=== PATIENT | male | born 1940 | race Caucasian/White ===

== ENCOUNTER 2017-11-26 16:37 | Inpatient (IN) | payer MEDICARE ==
[~2017-11-26] VITALS: Ht 165.1 cm; Wt 54.4 kg
[2017-11-26] MEDS ORDERED: 0.9% SODIUM CHLORIDE 10 ML SYRINGE IVP PRN ×2 (16:45→18:00)
[2017-11-26] MEDS ORDERED: CefTRIAXone 1 GM/DEXTROSE 50 ML IV ONE (16:45)
[2017-11-26] MEDS ORDERED: SODIUM CHLORIDE 0.9% 1,000 ML IV ONE ×2 (16:45→17:30)
[2017-11-26 17:03] LABS: GLUCOSE,POINT OF CARE 81 MG/DL (70-110)
[2017-11-26 17:16] LABS: APPEARANCE,URINE TURBID (CLEAR); GLUCOSE, URINE (UA) NEGATIVE (NEGATIVE); KETONES,URINE NEGATIVE (NEGATIVE); LEUKOCYTE ESTERASE ,URINE LARGE (NEGATIVE); NITRATE,URINE NEGATIVE (NEGATIVE); OCCULT BLOOD,URINE LARGE (NEGATIVE); PH,URINE 8.5 (5.0-8.0); PROTEIN,URINE SEE CONFIRM (NEGATIVE); UROBILINOGEN,URINE 0.2 mg/dL (<=1.0)
[2017-11-26 17:17] LABS: HEMATOCRIT 32.9 % (41-53); HEMOGLOBIN 10.5 g/dL (13.5-17.5); MEAN CORPUSCULAR HEMOGLOBIN 29.8 pg (26.0-34.0); MEAN CORPUSCULAR VOLUME 93 fL (80-100); PLATELET COUNT (AUTO) 140 K/uL (150-450); RED BLOOD CELL COUNT(AUTO) 3.54 MIL/uL (4.50-5.90); RED CELL DISTRIBUTION WIDTH 17.6 % (11.5-14.5)
[2017-11-26 17:23] LABS: BILIRUBIN,URINE PRELIM. POSITIVE (NEGATIVE)
[2017-11-26 17:30] LABS: INR 0.9 (0.9-1.1); PROTHROMBIN TIME 9.9 SEC (9.4-11.6)
[2017-11-26 17:35] LABS: BAND NEUTROPHILS % (MANUAL) 21 % (1-5); LYMPHOCYTES % (MANUAL) 6 % (22-44); MONOCYTES % (MANUAL) 2 % (2-9); SEGMENTED NEUTROPHILS % 71 % (40-70)
[2017-11-26 17:36] LABS: BACTERIA,URINE Few /HPF (None Seen); SULFOSALICYLIC ACID,URINE 3+ (Negative)
[2017-11-26 17:38] LABS: LACTIC ACID 2.8 mmol/L (0.4-2.0)
[2017-11-26 17:39] LABS: TRIPLE PHOSPHATE CRYSTAL,UR Moderate /LPF (None Seen)
[2017-11-26 17:39] LABS: B-TYPE NATRIURETIC PEPTIDE 114 pg/mL (0-100)
[2017-11-26] MEDS ORDERED: MethylPREDNISolone SOD SUCC 125 MG/2 ML VIAL IVP ONE (17:45)
[2017-11-26] MEDS ORDERED: ASPIRIN 325 MG TABLET PO ONE (17:45)
[2017-11-26 17:56] LABS: ALANINE AMINOTRANSFERASE 92 U/L (12-78); ALBUMIN 2.9 g/dL (3.4-5.0); ALKALINE PHOSPHATASE 109 U/L (46-116); ANION GAP 18 mmol/L (8-16); ASPARTATE AMINOTRANSFERASE 186 U/L (15-37); BILIRUBIN,TOTAL 0.4 mg/dL (0.1-1.0); CALCIUM, TOTAL 8.5 mg/dL (8.8-10.5); CARBON DIOXIDE 12 mmol/L (22-29); CHLORIDE 113 mmol/L (98-107); CKMB RELATIVE INDEX 2.5 % (0.0-4.0); CREATINE KINASE MB 45.6 ng/mL (0-5); CREATINE KINASE, TOTAL 1811 U/L (39-308); CREATININE 5.16 mg/dL (0.60-1.30); GLOMERULAR FILTR. RATE CALC 11 mL/min (>60); GLUCOSE,RANDOM 112 mg/dL (70-110); POTASSIUM 5.2 mmol/L (3.5-5.1); SODIUM SERUM 143 mmol/L (136-145); TOTAL PROTEIN, SERUM 7.1 g/dL (6.4-8.2)
[2017-11-26 17:57] LABS: UREA NITROGEN, BLOOD 148 mg/dL (7-18)
[2017-11-26] MEDS ORDERED: PIPERACILLIN/TAZO 3.375 GM/D5W 50 ML IV ONE (18:00)
[2017-11-26] MEDS ORDERED: ACETAMINOPHEN 325 MG TABLET PO PRN (18:00)
[2017-11-26] MEDS ORDERED: ONDANSETRON HCL 4 MG/2 ML VIAL IVP PRN (18:00)
[2017-11-26] MEDS ORDERED: DEXTROSE 5%-0.9% SODIUM CHL 1,000 ML IV ONE (21:00)
[2017-11-27 06:07] LABS: HEMATOCRIT 25.5 % (41-53); HEMOGLOBIN 8.4 g/dL (13.5-17.5); MEAN CORPUSCULAR HEMOGLOBIN 29.9 pg (26.0-34.0); MEAN CORPUSCULAR HGB CONC 32.9 G/dL (31.0-37.0); MEAN CORPUSCULAR VOLUME 91 fL (80-100); RED BLOOD CELL COUNT(AUTO) 2.81 MIL/uL (4.50-5.90); RED CELL DISTRIBUTION WIDTH 17.3 % (11.5-14.5)
[2017-11-27 06:22] LABS: ALBUMIN 2.2 g/dL (3.4-5.0); BILIRUBIN,TOTAL 0.2 mg/dL (0.1-1.0); CALCIUM, TOTAL 7.8 mg/dL (8.8-10.5); CREATININE 5.13 mg/dL (0.60-1.30); MAGNESIUM 2.7 mg/dL (1.80-2.40); POTASSIUM 5.2 mmol/L (3.5-5.1); TOTAL PROTEIN, SERUM 5.6 g/dL (6.4-8.2)
[2017-11-27 06:49] LABS: PLATELET COUNT (AUTO) 102 K/uL (150-450)
[2017-11-27 06:51] LABS: BAND NEUTROPHILS % (MANUAL) 59 % (1-5); LYMPHOCYTES % (MANUAL) 1 % (22-44); SEGMENTED NEUTROPHILS % 40 % (40-70)
[2017-11-27 09:48] VITALS: BP 136/65
[2017-11-27 12:36] VITALS: BP 132/55
[2017-11-27 15:40] VITALS: BP 140/59
[2017-11-27 16:28] VITALS: BP 112/85
[2017-11-27] MEDS: DEXTROSE 5%-0.9% SODIUM CHL 1,000 ML IV SCH (18:54)
[2017-11-27 19:52] LABS: ABG A-A DIFF O2 76.9 mmHg (10-20.0); ABG BASE EXCESS -22.5 mmol/L (-2.0-3.0); ABG CARBOXYHEMOGLOBIN 1.6 % (0.0-1.5); ABG METHEMOGLOBIN 0.5 % (0.0-1.5); ABG OXYGEN CONTENT 11.9 mL/dL (15.0-23.0); ABG OXYGEN SATURATION 99.7 % (95.0-98.0); ABG OXYHEMOGLOBIN 97.6 % (94.0-100.0); ABG TOTAL HEMOGLOBIN 8.2 G/dL (12.0-18.0); PO2, ARTERIAL BG 258.1 mmHg (75.0-83.0); SOURCE, BLOOD GAS ARTERIAL; TEMPERATURE, FAHRENHEIT, BG 98.6 FAHREN (96.0-98.6)
[2017-11-27 19:53] LABS: ABG HCO3 8.8 mmol/L (22.0-26.0); ABG PCO2 19 mmHg (35-45); ABG PH 7.145 (7.35-7.450); SITE, BLOOD GAS RT RADIAL
[2017-11-27 19:54] LABS: O2 DEVICE,BLOOD GAS BIPAP (ROOM AIR)
[2017-11-27 19:59] VITALS: BP 139/82
[2017-11-27] MEDS: CefTRIAXone 1 GM/DEXTROSE 50 ML IV SCH (20:01)
[2017-11-27] MEDS ORDERED: SODIUM BICARBONATE [ADULT] 8.4% 50 MEQ/50 ML SYRINGE IVP ONE (20:15)
[2017-11-27] MEDS ORDERED: SODIUM BICARBONATE 100 MEQ in DEXTROSE 5%-WATER 1,000 ML IV SCH ×2 (20:15→23:45)
[2017-11-28 00:23] VITALS: BP 128/59
[2017-11-28] MEDS: DEXTROSE 5%-0.9% SODIUM CHL 1,000 ML IV SCH ×3 (03:45→22:46)
[2017-11-28 06:32] VITALS: BP 141/102
[2017-11-28 07:52] VITALS: BP 133/68
[2017-11-28] MEDS: MethylPREDNISolone SOD SUCC 125 MG/2 ML VIAL IVP SCH ×3 (09:07→18:00)
[2017-11-28 09:21] LABS: CALCIUM, TOTAL 7.8 mg/dL (8.8-10.5); CREATININE 5.57 mg/dL (0.60-1.30); MAGNESIUM 2.6 mg/dL (1.80-2.40); POTASSIUM 4.3 mmol/L (3.5-5.1)
[2017-11-28 09:57] LABS: HEMATOCRIT 22.5 % (41-53); HEMOGLOBIN 7.4 g/dL (13.5-17.5); MEAN CORPUSCULAR HEMOGLOBIN 29.6 pg (26.0-34.0); MEAN CORPUSCULAR HGB CONC 32.9 G/dL (31.0-37.0); MEAN CORPUSCULAR VOLUME 90 fL (80-100); PLATELET COUNT (AUTO) 90 K/uL (150-450); RED BLOOD CELL COUNT(AUTO) 2.49 MIL/uL (4.50-5.90); RED CELL DISTRIBUTION WIDTH 17.1 % (11.5-14.5)
[2017-11-28 10:26] LABS: BAND NEUTROPHILS % (MANUAL) 35 % (1-5); LYMPHOCYTES % (MANUAL) 3 % (22-44); MONOCYTES % (MANUAL) 6 % (2-9); SEGMENTED NEUTROPHILS % 56 % (40-70)
[2017-11-28 11:12] VITALS: BP 145/61
[2017-11-28 15:10] VITALS: BP 147/88
[2017-11-28] MEDS: PIPERACILLIN/TAZO 3.375 GM/D5W 50 ML IV SCH (17:45)
[2017-11-28 19:45] VITALS: BP 137/84
[2017-11-28 20:25] LABS: ABG PCO2 29 mmHg (35-45); SITE, BLOOD GAS LFT RADIAL; SOURCE, BLOOD GAS ARTERIAL; TEMPERATURE, FAHRENHEIT, BG 98.6 FAHREN (96.0-98.6)
[2017-11-28 20:26] LABS: ABG BASE EXCESS -13.3 mmol/L (-2.0-3.0); ABG HCO3 14.6 mmol/L (22.0-26.0); ABG TOTAL HEMOGLOBIN 6.7 G/dL (12.0-18.0); PO2, ARTERIAL BG 169.7 mmHg (75.0-83.0)
[2017-11-28 20:27] LABS: ABG CARBOXYHEMOGLOBIN 1.3 % (0.0-1.5); ABG METHEMOGLOBIN 0.6 % (0.0-1.5); ABG OXYGEN CONTENT 9.6 mL/dL (15.0-23.0); ABG OXYGEN SATURATION 98.9 % (95.0-98.0)
[2017-11-28 20:28] LABS: O2 DEVICE,BLOOD GAS CANNULA (ROOM AIR)
[2017-11-28 21:55] LABS: EOSINOPHILS % (AUTO) 0 % (1.0-6.0); HEMATOCRIT 21.2 % (41-53); LYMPHOCYTES # (AUTO) 0.2 K/uL (1.0-4.8); LYMPHOCYTES % (AUTO) 1.9 % (22.0-44.0); MEAN CORPUSCULAR HEMOGLOBIN 28.9 pg (26.0-34.0); MEAN CORPUSCULAR HGB CONC 31.5 G/dL (31.0-37.0); MEAN CORPUSCULAR VOLUME 92 fL (80-100); MONOCYTES # (AUTO) 0.2 K/uL (0.1-1.0); MONOCYTES % (AUTO) 1.4 % (2.0-9.0); PLATELET COUNT (AUTO) 78 K/uL (150-450); RED BLOOD CELL COUNT(AUTO) 2.31 MIL/uL (4.50-5.90); RED CELL DISTRIBUTION WIDTH 18.1 % (11.5-14.5)
[2017-11-28 21:58] LABS: CALCIUM, TOTAL 7.5 mg/dL (8.8-10.5); CREATININE 5.57 mg/dL (0.60-1.30); MAGNESIUM 2.5 mg/dL (1.80-2.40); PHOSPHORUS 5.6 mg/dL (2.5-4.9); POTASSIUM 4.2 mmol/L (3.5-5.1)
[2017-11-28 22:04] LABS: HEMOGLOBIN 6.7 g/dL (13.5-17.5); NEUTROPHILS % (AUTO) 96.7 % (40.0-70.0)
[2017-11-28] MEDS ORDERED: FUROSEMIDE 20 MG/2 ML VIAL IVP ONE ×2 (22:30→22:45)
[2017-11-29] VITALS (14 sets, daily range): BP systolic 136–156; BP diastolic 51–96
[2017-11-29] MEDS ORDERED: SODIUM CHLORIDE 0.9% 500 ML IV ONE (00:42)
[2017-11-29 04:14] LABS: CREATININE,URINE RANDOM 60.1 mg/dL (30.0-125.0)
[2017-11-29 04:17] LABS: MAGNESIUM,URINE RANDOM 0.3 mg/dL (1.0-13.0)
[2017-11-29 05:26] LABS: ABG A-A DIFF O2 24.2 mmHg (10-20.0)
[2017-11-29] MEDS: PIPERACILLIN/TAZO 3.375 GM/D5W 50 ML IV SCH (08:28)
[2017-11-29] MEDS: PANTOPRAZOLE SODIUM 40 MG/VIAL IVP SCH (08:28)
[2017-11-29] MEDS: MethylPREDNISolone SOD SUCC 125 MG/2 ML VIAL IVP SCH ×3 (08:29→18:49)
[2017-11-29 08:47] LABS: CALCIUM, TOTAL 7.5 mg/dL (8.8-10.5); CREATININE 5.42 mg/dL (0.60-1.30); POTASSIUM 3.7 mmol/L (3.5-5.1)
[2017-11-29] MEDS: CefTRIAXone 1 GM/DEXTROSE 50 ML IV SCH (09:37)
[2017-11-29 10:12] LABS: EOSINOPHILS % (AUTO) 0 % (1.0-6.0); HEMATOCRIT 24.9 % (41-53); HEMOGLOBIN 8.1 g/dL (13.5-17.5); LYMPHOCYTES # (AUTO) 0.2 K/uL (1.0-4.8); LYMPHOCYTES % (AUTO) 1.4 % (22.0-44.0); MEAN CORPUSCULAR HEMOGLOBIN 28.3 pg (26.0-34.0); MEAN CORPUSCULAR HGB CONC 32.6 G/dL (31.0-37.0); MEAN CORPUSCULAR VOLUME 87 fL (80-100); MONOCYTES # (AUTO) 0.3 K/uL (0.1-1.0); MONOCYTES % (AUTO) 2.3 % (2.0-9.0); NEUTROPHILS # (AUTO) 13.1 K/uL (1.8-7.7); PLATELET COUNT (AUTO) 71 K/uL (150-450); RED BLOOD CELL COUNT(AUTO) 2.86 MIL/uL (4.50-5.90); RED CELL DISTRIBUTION WIDTH 19.5 % (11.5-14.5)
[2017-11-29 10:16] LABS: NEUTROPHILS % (AUTO) 96.3 % (40.0-70.0)
[2017-11-29] MEDS: DEXTROSE 5%-0.9% SODIUM CHL 1,000 ML IV SCH (12:02)
[2017-11-29 15:45] LABS: CALCIUM, TOTAL 7.5 mg/dL (8.8-10.5); CREATININE 5.51 mg/dL (0.60-1.30); MAGNESIUM 2.3 mg/dL (1.80-2.40); PHOSPHORUS 5.1 mg/dL (2.5-4.9); POTASSIUM 3.9 mmol/L (3.5-5.1)
[2017-11-29] MEDS ORDERED: PIPERACILLIN SODIUM/TAZOBACTAM 2.25 GM in DEXTROSE 5%-WATER 50 ML IV SCH (16:00)
[2017-11-29 20:53] LABS: CALCIUM, TOTAL 7.6 mg/dL (8.8-10.5); CREATININE 4.69 mg/dL (0.60-1.30); POTASSIUM 3.5 mmol/L (3.5-5.1)
[2017-11-29] MEDS: SODIUM CHLORIDE 0.45% 1,000 ML IV SCH (22:09)
[2017-11-30] MEDS: MethylPREDNISolone SOD SUCC 125 MG/2 ML VIAL IVP SCH ×4 (00:36→19:49)
[2017-11-30 05:04] VITALS: BP 148/70
[2017-11-30 07:27] LABS: EOSINOPHILS % (AUTO) 0.1 % (1.0-6.0); HEMATOCRIT 22.7 % (41-53); HEMOGLOBIN 7.6 g/dL (13.5-17.5); LYMPHOCYTES # (AUTO) 0.2 K/uL (1.0-4.8); LYMPHOCYTES % (AUTO) 1.1 % (22.0-44.0); MEAN CORPUSCULAR HEMOGLOBIN 28.9 pg (26.0-34.0); MEAN CORPUSCULAR HGB CONC 33.5 G/dL (31.0-37.0); MEAN CORPUSCULAR VOLUME 86 fL (80-100); MONOCYTES # (AUTO) 0.4 K/uL (0.1-1.0); MONOCYTES % (AUTO) 2.7 % (2.0-9.0); PLATELET COUNT (AUTO) 52 K/uL (150-450); RED BLOOD CELL COUNT(AUTO) 2.63 MIL/uL (4.50-5.90); RED CELL DISTRIBUTION WIDTH 20.4 % (11.5-14.5)
[2017-11-30 07:28] LABS: CALCIUM, TOTAL 7.7 mg/dL (8.8-10.5); CREATININE 4.89 mg/dL (0.60-1.30); PHOSPHORUS 5.2 mg/dL (2.5-4.9); POTASSIUM 3.6 mmol/L (3.5-5.1)
[2017-11-30 07:30] LABS: NEUTROPHILS % (AUTO) 96.1 % (40.0-70.0)
[2017-11-30 08:08] VITALS: BP 156/70
[2017-11-30] MEDS: PANTOPRAZOLE SODIUM 40 MG/VIAL IVP SCH (08:26)
[2017-11-30] MEDS: SODIUM CHLORIDE 0.45% 1,000 ML IV SCH ×2 (09:08→16:40)
[2017-11-30] MEDS ORDERED: SODIUM CHLORIDE 0.9% 1,000 ML IV ONE (09:59)
[2017-11-30 11:17] VITALS: BP 128/64
[2017-11-30] MEDS: CefTRIAXone 1 GM/DEXTROSE 50 ML IV SCH (14:30)
[2017-11-30 16:05] VITALS: BP 146/57
[2017-11-30] MEDS ORDERED: DEXTROSE 50%-WATER 25 GM/50 ML SYRINGE IVP PRN (16:30)
[2017-11-30] MEDS ORDERED: INSULIN ASPART 100 UNITS/ML SQ PRN (16:30)
[2017-11-30 19:57] VITALS: BP 150/77
[2017-12-01] MEDS: MethylPREDNISolone SOD SUCC 125 MG/2 ML VIAL IVP SCH ×5 (00:23→23:10)
[2017-12-01] MEDS: SODIUM CHLORIDE 0.45% 1,000 ML IV SCH ×3 (03:51→20:51)
[2017-12-01 04:42] VITALS: BP 120/79
[2017-12-01 07:38] VITALS: BP 146/74
[2017-12-01] MEDS: PANTOPRAZOLE SODIUM 40 MG/VIAL IVP SCH (07:55)
[2017-12-01] MEDS: CefTRIAXone 1 GM/DEXTROSE 50 ML IV SCH (10:45)
[2017-12-01 11:43] VITALS: BP 149/74
[2017-12-01 12:48] LABS: CALCIUM, TOTAL 7.6 mg/dL (8.8-10.5); CREATININE 3.37 mg/dL (0.60-1.30); POTASSIUM 3.7 mmol/L (3.5-5.1)
[2017-12-01 12:52] LABS: MAGNESIUM 1.7 mg/dL (1.80-2.40); PHOSPHORUS 5.4 mg/dL (2.5-4.9)
[2017-12-01 13:00] LABS: EOSINOPHILS % (AUTO) 0 % (1.0-6.0); HEMATOCRIT 22.9 % (41-53); HEMOGLOBIN 7.7 g/dL (13.5-17.5); LYMPHOCYTES # (AUTO) 0.2 K/uL (1.0-4.8); LYMPHOCYTES % (AUTO) 1.5 % (22.0-44.0); MEAN CORPUSCULAR HGB CONC 33.8 G/dL (31.0-37.0); MEAN CORPUSCULAR VOLUME 86 fL (80-100); MONOCYTES # (AUTO) 0.4 K/uL (0.1-1.0); MONOCYTES % (AUTO) 2.5 % (2.0-9.0); NEUTROPHILS # (AUTO) 15.2 K/uL (1.8-7.7); PLATELET COUNT (AUTO) 44 K/uL (150-450); RED BLOOD CELL COUNT(AUTO) 2.66 MIL/uL (4.50-5.90); RED CELL DISTRIBUTION WIDTH 19.5 % (11.5-14.5)
[2017-12-01 15:36] VITALS: BP 149/81
[2017-12-01 16:42] LABS: PLATELET MORPHOLOGY COMMENT DECREASED
[2017-12-01 19:48] VITALS: BP 155/56
[2017-12-02] VITALS (7 sets, daily range): BP systolic 105–162; BP diastolic 50–100
[2017-12-02] MEDS: SODIUM CHLORIDE 0.45% 1,000 ML IV SCH ×2 (05:39→12:20)
[2017-12-02] MEDS: MethylPREDNISolone SOD SUCC 125 MG/2 ML VIAL IVP SCH ×4 (06:46→23:59)
[2017-12-02] MEDS: PANTOPRAZOLE SODIUM 40 MG/VIAL IVP SCH (09:27)
[2017-12-02] MEDS: CefTRIAXone 1 GM/DEXTROSE 50 ML IV SCH (09:27)
[2017-12-02 10:23] LABS: EOSINOPHILS % (AUTO) 0 % (1.0-6.0); LYMPHOCYTES # (AUTO) 0.2 K/uL (1.0-4.8); LYMPHOCYTES % (AUTO) 1.2 % (22.0-44.0); MEAN CORPUSCULAR HEMOGLOBIN 28.7 pg (26.0-34.0); MEAN CORPUSCULAR VOLUME 87 fL (80-100); MONOCYTES # (AUTO) 0.3 K/uL (0.1-1.0); MONOCYTES % (AUTO) 1.7 % (2.0-9.0); NEUTROPHILS # (AUTO) 18.2 K/uL (1.8-7.7); PLATELET COUNT (AUTO) 50 K/uL (150-450); RED BLOOD CELL COUNT(AUTO) 2.33 MIL/uL (4.50-5.90); RED CELL DISTRIBUTION WIDTH 18.9 % (11.5-14.5)
[2017-12-02 10:24] LABS: CREATININE 3.21 mg/dL (0.60-1.30); MAGNESIUM 1.4 mg/dL (1.80-2.40); PHOSPHORUS 5.5 mg/dL (2.5-4.9); POTASSIUM 3.3 mmol/L (3.5-5.1)
[2017-12-02 10:27] LABS: HEMATOCRIT 20.3 % (41-53); HEMOGLOBIN 6.7 g/dL (13.5-17.5); NEUTROPHILS % (AUTO) 97.1 % (40.0-70.0)
[2017-12-02] MEDS ORDERED: SODIUM CHLORIDE 0.9% 1,000 ML IV ONE ×2 (11:03→12:35)
[2017-12-02] MEDS: POTASSIUM CHL 10 MEQ/WATER 50 ML IV SCH ×2 (14:26→15:41)
[2017-12-02] MEDS ORDERED: HEPARIN SODIUM,PORCINE 1,000 UNITS/ML VIAL IVP ONE (15:37)
[2017-12-02] MEDS ORDERED: HEPARIN SODIUM,PORCINE 5,000 UNITS/ML VIAL SQ ONE (15:37)
[2017-12-02] MEDS ORDERED: POTASSIUM CHL 10 MEQ/WATER 50 ML IV SCH (16:15)
[2017-12-02] MEDS ORDERED: MAGNESIUM SULFATE 1 GM in DEXTROSE 5%-WATER 50 ML IV ONE (18:15)
[2017-12-03] VITALS (13 sets, daily range): BP systolic 136–169; BP diastolic 63–108
[2017-12-03] MEDS ORDERED: SODIUM CHLORIDE 0.9% 250 ML IV ONE ×2 (00:08→00:43)
[2017-12-03] MEDS: MethylPREDNISolone SOD SUCC 125 MG/2 ML VIAL IVP SCH ×4 (05:15→23:58)
[2017-12-03] MEDS: SODIUM CHLORIDE 0.45% 1,000 ML IV SCH ×3 (05:15→23:59)
[2017-12-03] MEDS: PANTOPRAZOLE SODIUM 40 MG/VIAL IVP SCH (09:00)
[2017-12-03] MEDS: CefTRIAXone 1 GM/DEXTROSE 50 ML IV SCH (10:00)
[2017-12-03 10:03] LABS: CALCIUM, TOTAL 7.2 mg/dL (8.8-10.5); CREATININE 3.02 mg/dL (0.60-1.30); PHOSPHORUS 5.8 mg/dL (2.5-4.9)
[2017-12-03] MEDS ORDERED: SODIUM CHLORIDE 0.9% 1,000 ML IV ONE (11:57)
[2017-12-03] MEDS: FLUCONAZOLE 100 MG TABLET PO SCH (12:30)
[2017-12-03 12:48] LABS: MAGNESIUM 1.8 mg/dL (1.80-2.40)
[2017-12-03] MEDS ORDERED: BENZOCAINE 20% 50 MCG/SPRAY 57 GM ONE (13:06)
[2017-12-03] MEDS ORDERED: MIDAZOLAM HCL 2 MG/2 ML VIAL ONE (13:34)
[2017-12-03] MEDS ORDERED: FentaNYL CITRATE-PF 100 MCG/2 ML VIAL ONE (13:34)
[2017-12-03] MEDS ORDERED: HEPARIN SODIUM,PORCINE 1,000 UNITS/ML 10 ML VIAL ONE (13:35)
[2017-12-03] MEDS ORDERED: HEPARIN SODIUM 1000 UNITS/NS 500 ML ONE (13:35)
[2017-12-03] MEDS ORDERED: LIDOCAINE HCL/PF 1% 30 ML VIAL ONE (13:35)
[2017-12-03] MEDS ORDERED: MIDAZOLAM HCL 2 MG/2 ML VIAL IVP ONE (14:19)
[2017-12-03] MEDS ORDERED: FentaNYL CITRATE-PF 100 MCG/2 ML VIAL IVP ONE (14:19)
[2017-12-03 19:14] LABS: BASOPHILS # (AUTO) 0.02 K/uL (0.00-0.20); BASOPHILS % (AUTO) 0.1 % (0.0-2.0); EOSINOPHILS % (AUTO) 0.01 % (1.0-6.0); HEMATOCRIT 25.6 % (41-53); HEMOGLOBIN 8.6 g/dL (13.5-17.5); LYMPHOCYTES # (AUTO) 0.3 K/uL (1.0-4.8); LYMPHOCYTES % (AUTO) 1.3 % (22.0-44.0); MEAN CORPUSCULAR HEMOGLOBIN 28.7 pg (26.0-34.0); MEAN CORPUSCULAR HGB CONC 33.7 G/dL (31.0-37.0); MEAN CORPUSCULAR VOLUME 85 fL (80-100); MONOCYTES # (AUTO) 0.7 K/uL (0.1-1.0); MONOCYTES % (AUTO) 3.6 % (2.0-9.0); NEUTROPHILS # (AUTO) 18.3 K/uL (1.8-7.7); PLATELET COUNT (AUTO) 47 K/uL (150-450); RED BLOOD CELL COUNT(AUTO) 3.01 MIL/uL (4.50-5.90); RED CELL DISTRIBUTION WIDTH 17.2 % (11.5-14.5)
[2017-12-04 03:15] VITALS: BP 127/55
[2017-12-04] MEDS: MethylPREDNISolone SOD SUCC 125 MG/2 ML VIAL IVP SCH ×2 (05:21→12:27)
[2017-12-04 07:49] VITALS: BP 191/77
[2017-12-04 08:03] VITALS: BP 148/87
[2017-12-04 09:44] LABS: EOSINOPHILS % (AUTO) 0.02 % (1.0-6.0); HEMOGLOBIN 8.2 g/dL (13.5-17.5); LYMPHOCYTES % (AUTO) 0.1 % (22.0-44.0); MEAN CORPUSCULAR HEMOGLOBIN 28.7 pg (26.0-34.0); MEAN CORPUSCULAR HGB CONC 32.9 G/dL (31.0-37.0); MEAN CORPUSCULAR VOLUME 87 fL (80-100); MONOCYTES # (AUTO) 0.3 K/uL (0.1-1.0); MONOCYTES % (AUTO) 1.9 % (2.0-9.0); PLATELET COUNT (AUTO) 41 K/uL (150-450); RED BLOOD CELL COUNT(AUTO) 2.87 MIL/uL (4.50-5.90); RED CELL DISTRIBUTION WIDTH 17.1 % (11.5-14.5)
[2017-12-04] MEDS: FLUCONAZOLE 100 MG TABLET PO SCH (09:47)
[2017-12-04] MEDS: PANTOPRAZOLE SODIUM 40 MG/VIAL IVP SCH (09:47)
[2017-12-04 09:58] LABS: CALCIUM, TOTAL 6.8 mg/dL (8.8-10.5); CREATININE 1.95 mg/dL (0.60-1.30); POTASSIUM 3.5 mmol/L (3.5-5.1)
[2017-12-04] MEDS: CefTRIAXone 1 GM/DEXTROSE 50 ML IV SCH (11:10)
[2017-12-04 12:12] VITALS: BP 162/88
[2017-12-04] MEDS ORDERED: CALCIUM GLUCONATE 100 MG/ML 10 ML IVP ONE (12:45)
[2017-12-04] MEDS: SODIUM CHLORIDE 0.45% 1,000 ML IV SCH (16:56)
[2017-12-04 19:20] VITALS: BP 137/81
[2017-12-04 23:09] VITALS: BP 160/97
[2017-12-05 04:20] VITALS: BP 152/89
[2017-12-05] MEDS: SODIUM CHLORIDE 0.45% 1,000 ML IV SCH ×2 (06:47→20:02)
[2017-12-05 07:08] LABS: EOSINOPHILS % (AUTO) 0.02 % (1.0-6.0); HEMATOCRIT 22.6 % (41-53); HEMOGLOBIN 7.4 g/dL (13.5-17.5); LYMPHOCYTES # (AUTO) 0.1 K/uL (1.0-4.8); LYMPHOCYTES % (AUTO) 0.3 % (22.0-44.0); MEAN CORPUSCULAR HEMOGLOBIN 28.9 pg (26.0-34.0); MEAN CORPUSCULAR HGB CONC 32.9 G/dL (31.0-37.0); MEAN CORPUSCULAR VOLUME 88 fL (80-100); MONOCYTES # (AUTO) 0.3 K/uL (0.1-1.0); MONOCYTES % (AUTO) 1.5 % (2.0-9.0); NEUTROPHILS # (AUTO) 17.9 K/uL (1.8-7.7); PLATELET COUNT (AUTO) 71 K/uL (150-450); RED BLOOD CELL COUNT(AUTO) 2.58 MIL/uL (4.50-5.90); RED CELL DISTRIBUTION WIDTH 17.4 % (11.5-14.5)
[2017-12-05 07:31] LABS: CALCIUM, TOTAL 6.6 mg/dL (8.8-10.5); CREATININE 2.39 mg/dL (0.60-1.30); NEUTROPHILS % (AUTO) 98.2 % (40.0-70.0); PHOSPHORUS 3.8 mg/dL (2.5-4.9)
[2017-12-05 07:45] VITALS: BP 145/70
[2017-12-05] MEDS: MethylPREDNISolone SOD SUCC 40 MG/ML VIAL IVP SCH (08:50)
[2017-12-05] MEDS: FLUCONAZOLE 100 MG TABLET PO SCH (08:50)
[2017-12-05] MEDS: PANTOPRAZOLE SODIUM 40 MG/VIAL IVP SCH (08:50)
[2017-12-05] MEDS: CefTRIAXone 1 GM/DEXTROSE 50 ML IV SCH (08:52)
[2017-12-05 11:28] LABS: MAGNESIUM 1.4 mg/dL (1.80-2.40); POTASSIUM 3.2 mmol/L (3.5-5.1)
[2017-12-05 11:42] VITALS: BP 150/64
[2017-12-05] MEDS ORDERED: MAGNESIUM SULFATE 1 GM in DEXTROSE 5%-WATER 50 ML IV ONE (12:30)
[2017-12-05] MEDS ORDERED: POTASSIUM CHLORIDE 10 MEQ ER TABLET PO ONE (12:30)
[2017-12-05] MEDS: EPOETIN ALFA 10,000 UNITS/ML VIAL SQ SCH (14:27)
[2017-12-05 15:45] VITALS: BP 142/57
[2017-12-05 18:41] LABS: CALCIUM, TOTAL 6.6 mg/dL (8.8-10.5); CREATININE 2.5 mg/dL (0.60-1.30)
[2017-12-05 18:59] LABS: POTASSIUM 3.4 mmol/L (3.5-5.1)
[2017-12-05 19:45] VITALS: BP 158/63
[2017-12-05 23:15] VITALS: BP 175/85
[2017-12-06 01:45] VITALS: BP 157/73
[2017-12-06] MEDS: HydrALAZINE HCL 20 MG/ML VIAL IVP PRN (01:49)
[2017-12-06 05:42] VITALS: BP 121/56
[2017-12-06 06:27] LABS: EOSINOPHILS % (AUTO) 0.1 % (1.0-6.0); HEMATOCRIT 26.8 % (41-53); LYMPHOCYTES # (AUTO) 0.2 K/uL (1.0-4.8); LYMPHOCYTES % (AUTO) 0.7 % (22.0-44.0); MEAN CORPUSCULAR HEMOGLOBIN 29.4 pg (26.0-34.0); MEAN CORPUSCULAR HGB CONC 33.7 G/dL (31.0-37.0); MEAN CORPUSCULAR VOLUME 87 fL (80-100); MONOCYTES # (AUTO) 0.4 K/uL (0.1-1.0); MONOCYTES % (AUTO) 1.3 % (2.0-9.0); NEUTROPHILS # (AUTO) 28.8 K/uL (1.8-7.7); PLATELET COUNT (AUTO) 73 K/uL (150-450); RED BLOOD CELL COUNT(AUTO) 3.07 MIL/uL (4.50-5.90); RED CELL DISTRIBUTION WIDTH 17.3 % (11.5-14.5)
[2017-12-06 07:02] LABS: CALCIUM, TOTAL 6.8 mg/dL (8.8-10.5); CREATININE 2.69 mg/dL (0.60-1.30); MAGNESIUM 1.5 mg/dL (1.80-2.40); PHOSPHORUS 3.2 mg/dL (2.5-4.9); POTASSIUM 3.1 mmol/L (3.5-5.1)
[2017-12-06 07:03] VITALS: BP 115/54
[2017-12-06 07:24] LABS: NEUTROPHILS % (AUTO) 97.9 % (40.0-70.0)
[2017-12-06] MEDS ORDERED: MAGNESIUM SULFATE 1 GM in DEXTROSE 5%-WATER 50 ML IV ONE (09:15)
[2017-12-06] MEDS: FLUCONAZOLE 100 MG TABLET PO SCH (10:23)
[2017-12-06] MEDS: PANTOPRAZOLE SODIUM 40 MG/VIAL IVP SCH (10:23)
[2017-12-06] MEDS: MethylPREDNISolone SOD SUCC 40 MG/ML VIAL IVP SCH (10:23)
[2017-12-06] MEDS: POTASSIUM CHL 10 MEQ/WATER 50 ML IV SCH ×2 (10:24→12:29)
[2017-12-06 11:18] LABS: % IRON SATURATION 10.3 % (30-44)
[2017-12-06 11:34] VITALS: BP 139/57
[2017-12-06] MEDS: CefTRIAXone 1 GM/DEXTROSE 50 ML IV SCH (12:29)
[2017-12-06] MEDS: SODIUM CHLORIDE 0.45% 1,000 ML IV SCH (15:30)
[2017-12-06 15:58] VITALS: BP 136/58
[2017-12-06 18:48] LABS: CALCIUM, TOTAL 6.9 mg/dL (8.8-10.5); CREATININE 2.81 mg/dL (0.60-1.30); PHOSPHORUS 2.9 mg/dL (2.5-4.9); POTASSIUM 3.7 mmol/L (3.5-5.1)
[2017-12-06] MEDS: PIPERACILLIN SODIUM/TAZOBACTAM 2.25 GM in DEXTROSE 5%-WATER 50 ML IV SCH ×2 (19:21→22:34)
[2017-12-06] MEDS: CIPROFLOXACIN 400 MG/D5% WATER 200 ML IV SCH (19:21)
[2017-12-06 19:39] VITALS: BP 123/58
[2017-12-07] VITALS (8 sets, daily range): BP systolic 128–168; BP diastolic 52–89
[2017-12-07] MEDS: SODIUM CHLORIDE 0.45% 1,000 ML IV SCH (00:28)
[2017-12-07] MEDS: PIPERACILLIN SODIUM/TAZOBACTAM 2.25 GM in DEXTROSE 5%-WATER 50 ML IV SCH ×3 (02:32→16:26)
[2017-12-07] MEDS: CIPROFLOXACIN 400 MG/D5% WATER 200 ML IV SCH (03:14)
[2017-12-07] MEDS ORDERED: FUROSEMIDE 20 MG/2 ML VIAL IVP ONE (07:00)
[2017-12-07] MEDS: PANTOPRAZOLE SODIUM 40 MG/VIAL IVP SCH (08:01)
[2017-12-07] MEDS: FLUCONAZOLE 100 MG TABLET PO SCH (08:02)
[2017-12-07] MEDS: MethylPREDNISolone SOD SUCC 40 MG/ML VIAL IVP SCH (08:02)
[2017-12-07 10:18] LABS: EOSINOPHILS % (AUTO) 0 % (1.0-6.0); HEMATOCRIT 22.8 % (41-53); HEMOGLOBIN 7.6 g/dL (13.5-17.5); LYMPHOCYTES # (AUTO) 0.1 K/uL (1.0-4.8); LYMPHOCYTES % (AUTO) 0.3 % (22.0-44.0); MEAN CORPUSCULAR HEMOGLOBIN 29.4 pg (26.0-34.0); MEAN CORPUSCULAR HGB CONC 33.4 G/dL (31.0-37.0); MEAN CORPUSCULAR VOLUME 88 fL (80-100); MONOCYTES # (AUTO) 0.3 K/uL (0.1-1.0); MONOCYTES % (AUTO) 1.6 % (2.0-9.0); NEUTROPHILS # (AUTO) 19.3 K/uL (1.8-7.7); PLATELET COUNT (AUTO) 71 K/uL (150-450); RED BLOOD CELL COUNT(AUTO) 2.58 MIL/uL (4.50-5.90); RED CELL DISTRIBUTION WIDTH 17.7 % (11.5-14.5)
[2017-12-07 10:26] LABS: CALCIUM, TOTAL 6.9 mg/dL (8.8-10.5); CREATININE 2.79 mg/dL (0.60-1.30); MAGNESIUM 1.6 mg/dL (1.80-2.40); PHOSPHORUS 3.1 mg/dL (2.5-4.9)
[2017-12-07 10:33] LABS: NEUTROPHILS % (AUTO) 98.1 % (40.0-70.0)
[2017-12-07] MEDS ORDERED: MAGNESIUM SULFATE 1 GM in DEXTROSE 5%-WATER 50 ML IV ONE (11:00)
[2017-12-07] MEDS: POTASSIUM CHL 10 MEQ/WATER 50 ML IV SCH ×2 (11:56→17:03)
[2017-12-07] MEDS ORDERED: PIPERACILLIN SODIUM/TAZOBACTAM 0.75 GM in DEXTROSE 5%-WATER 50 ML IV PRN (12:00)
[2017-12-07] MEDS: HydrALAZINE HCL 20 MG/ML VIAL IVP PRN (16:22)
[2017-12-07] MEDS: ASPIRIN 81 MG CHEWABLE TABLET PO SCH (19:30)
[2017-12-07] MEDS: CIPROFLOXACIN 200 MG/D5% WATER 100 ML IV SCH (22:09)
[2017-12-07 22:13] LABS: HEMOGLOBIN A1C 5.9 % (4.5-6.2)
[2017-12-07 22:57] LABS: CHOL/HDL RATIO 1.9 (4.2-7.3); THYROID STIMULATING HORMONE 0.74 uIU/mL (0.36-3.74)
[2017-12-07] MEDS ORDERED: VANCOMYCIN HCL 1 GM/D5% WATER 200 ML IV PRN (23:30)
[2017-12-08] MEDS ORDERED: VANCOMYCIN HCL 1 GM/D5% WATER 200 ML IV ONE
[2017-12-08] MEDS: PIPERACILLIN SODIUM/TAZOBACTAM 2.25 GM in DEXTROSE 5%-WATER 50 ML IV SCH ×2 (01:02→08:52)
[2017-12-08] MEDS: SODIUM CHLORIDE 0.45% 1,000 ML IV SCH (01:02)
[2017-12-08 04:59] VITALS: BP 144/55
[2017-12-08] MEDS: CIPROFLOXACIN 200 MG/D5% WATER 100 ML IV SCH (06:29)
[2017-12-08 07:44] LABS: EOSINOPHILS % (AUTO) 0 % (1.0-6.0); HEMATOCRIT 23.2 % (41-53); HEMOGLOBIN 7.8 g/dL (13.5-17.5); LYMPHOCYTES # (AUTO) 0.3 K/uL (1.0-4.8); LYMPHOCYTES % (AUTO) 1.5 % (22.0-44.0); MEAN CORPUSCULAR HEMOGLOBIN 29.3 pg (26.0-34.0); MEAN CORPUSCULAR HGB CONC 33.5 G/dL (31.0-37.0); MEAN CORPUSCULAR VOLUME 87 fL (80-100); MONOCYTES # (AUTO) 0.6 K/uL (0.1-1.0); MONOCYTES % (AUTO) 2.5 % (2.0-9.0); PLATELET COUNT (AUTO) 86 K/uL (150-450); RED BLOOD CELL COUNT(AUTO) 2.65 MIL/uL (4.50-5.90)
[2017-12-08 07:57] VITALS: BP 144/61
[2017-12-08 08:08] LABS: CALCIUM, TOTAL 7.4 mg/dL (8.8-10.5); CREATININE 3.24 mg/dL (0.60-1.30); MAGNESIUM 1.6 mg/dL (1.80-2.40); PHOSPHORUS 4.2 mg/dL (2.5-4.9); POTASSIUM 3.9 mmol/L (3.5-5.1)
[2017-12-08] MEDS: FLUCONAZOLE 100 MG TABLET PO SCH (08:53)
[2017-12-08] MEDS: PANTOPRAZOLE SODIUM 40 MG/VIAL IVP SCH (08:53)
[2017-12-08] MEDS: MethylPREDNISolone SOD SUCC 40 MG/ML VIAL IVP SCH (08:53)
[2017-12-08] MEDS: ASPIRIN 81 MG CHEWABLE TABLET PO SCH (08:53)
[2017-12-08] MEDS: EPOETIN ALFA 10,000 UNITS/ML VIAL SQ SCH (08:53)
[2017-12-08] MEDS ORDERED: [UNRECOGNIZED DRUG - REMARK] MISC SCH (09:00)
[2017-12-08 09:22] LABS: FOLATE SERUM 6.1 ng/mL (5.4-)
[2017-12-08 11:40] VITALS: BP 145/62
[2017-12-08 11:43] LABS: GLUCOMETER DEV NAME(LOC) 5N 1M; GLUCOSE,POINT OF CARE 178 MG/DL (70-110)
[2017-12-08] MEDS: METOPROLOL SUCCINATE 25 MG ER TABLET PO SCH (14:00)
[2017-12-08] MEDS: ATORVASTATIN CALCIUM 10 MG TABLET PO SCH (14:17)
[2017-12-08] MEDS ORDERED: ALBUMIN HUMAN 25%-25GM/100ML 100 ML IV ONE (16:00)
[2017-12-08] MEDS ORDERED: SODIUM CHLORIDE 0.9% 250 ML IV ONE (16:00)
[2017-12-08 16:16] VITALS: BP 107/33
[2017-12-08 16:47] LABS: ABG A-A DIFF O2 452.9 mmHg (10-20.0); ABG BASE EXCESS -6.4 mmol/L (-2.0-3.0); ABG CARBOXYHEMOGLOBIN 2.3 % (0.0-1.5); ABG HCO3 19.7 mmol/L (22.0-26.0); ABG METHEMOGLOBIN 0.6 % (0.0-1.5); ABG OXYGEN CONTENT 11.4 mL/dL (15.0-23.0); ABG OXYGEN SATURATION 99.9 % (95.0-98.0); ABG PCO2 33 mmHg (35-45); ABG PH 7.373 (7.35-7.450); ABG TOTAL HEMOGLOBIN 7.9 G/dL (12.0-18.0); PO2, ARTERIAL BG 228.1 mmHg (75.0-83.0); SOURCE, BLOOD GAS ARTERIAL; TEMPERATURE, FAHRENHEIT, BG 97.8 FAHREN (96.0-98.6)
[2017-12-08 16:48] LABS: O2 DEVICE,BLOOD GAS NON-REBREATHER (ROOM AIR); SITE, BLOOD GAS LFT BRACHIAL
[2017-12-08 17:03] LABS: GLUCOMETER DEV NAME(LOC) 5N 1M; GLUCOSE,POINT OF CARE 136 MG/DL (70-110)
[2017-12-08 17:58] LABS: CALCIUM, TOTAL 7.3 mg/dL (8.8-10.5); CREATININE 2.92 mg/dL (0.60-1.30); POTASSIUM 3.6 mmol/L (3.5-5.1)
[2017-12-08 17:59] LABS: MAGNESIUM 1.5 mg/dL (1.80-2.40)
[2017-12-08] MEDS: MAGNESIUM OXIDE 400 MG TABLET PO ONE (18:52)
[2017-12-08 19:39] VITALS: BP 125/47
[2017-12-08 23:19] VITALS: BP 145/68
[2017-12-09] MEDS ORDERED: HEPARIN SODIUM,PORCINE 1,000 UNITS/ML VIAL IVP ONE (01:32)
[2017-12-09] MEDS: PIPERACILLIN SODIUM/TAZOBACTAM 2.25 GM in DEXTROSE 5%-WATER 50 ML IV SCH ×3 (04:00→12:00)
[2017-12-09 04:26] VITALS: BP 117/62
[2017-12-09] MEDS: CIPROFLOXACIN 200 MG/D5% WATER 100 ML IV SCH ×2 (05:26→05:28)
[2017-12-09] MEDS: MAGNESIUM OXIDE 400 MG TABLET PO ONE (05:27)
[2017-12-09] MEDS: METOPROLOL SUCCINATE 25 MG ER TABLET PO SCH (05:27)
[2017-12-09 07:22] VITALS: BP 139/58
[2017-12-09] MEDS: ATORVASTATIN CALCIUM 10 MG TABLET PO SCH (09:00)
[2017-12-09] MEDS ORDERED: MAGNESIUM OXIDE 400 MG TABLET PO SCH (09:00)
[2017-12-09] MEDS ORDERED: METOPROLOL SUCCINATE 25 MG ER TABLET PO SCH (09:00)
[2017-12-09] MEDS: ASPIRIN 81 MG CHEWABLE TABLET PO SCH (09:00)
[2017-12-09] MEDS: FLUCONAZOLE 100 MG TABLET PO SCH (09:00)
[2017-12-09] MEDS ORDERED: MAGNESIUM SULFATE 4 GM/WATER 100 ML IV ONE (09:45)
[2017-12-09] MEDS: PANTOPRAZOLE SODIUM 40 MG/VIAL IVP SCH (10:43)
[2017-12-09] MEDS ORDERED: MORPHINE SULFATE 100 MG/NS/PF 100 ML IV PRN (10:45)
[2017-12-09] MEDS: MethylPREDNISolone SOD SUCC 40 MG/ML VIAL IVP SCH (10:45)
[2017-12-09 10:51] VITALS: BP 129/47
[2017-12-09 12:21] LABS: ALBUMIN 1.3 g/dL (3.4-5.0); CALCIUM, TOTAL 7.3 mg/dL (8.8-10.5); CREATININE 4.14 mg/dL (0.60-1.30)
[2017-12-09 12:22] LABS: BILIRUBIN,TOTAL 0.7 mg/dL (0.1-1.0); MAGNESIUM 1.8 mg/dL (1.80-2.40); PHOSPHORUS 6.8 mg/dL (2.5-4.9)
[2017-12-09 12:23] LABS: TOTAL PROTEIN, SERUM 3.9 g/dL (6.4-8.2)
== END 2017-12-09 14:16 | disposition expired | DRG 871 ==
LOC: EMS 16:38 → AHU 11-27 06:48 → 5S 11-27 14:49 → 6N 12-02 23:02 → 5N 12-06 01:29
PROVIDERS: ADMIT Internal Medicine; ATTEND Internal Medicine
PROC: 05HM33Z Insertion of Infusion Device into Right Internal Jugular Vein, Percutaneous Approach (ICD-10-PCS; principal; 2017-11-29)
PROC: B543ZZA Ultrasonography of Right Jugular Veins, Guidance (ICD-10-PCS; 2017-11-29)
PROC: 30233N1 Transfusion of Nonautologous Red Blood Cells into Peripheral Vein, Percutaneous Approach (ICD-10-PCS; 2017-11-29)
PROC: 5A1D70Z Performance of Urinary Filtration, Intermittent, Less than 6 Hours Per Day (ICD-10-PCS; 2017-11-29)
PROC: 5A1D70Z Performance of Urinary Filtration, Intermittent, Less than 6 Hours Per Day (ICD-10-PCS; 2017-11-30)
PROC: 5A1D70Z Performance of Urinary Filtration, Intermittent, Less than 6 Hours Per Day (ICD-10-PCS; 2017-12-01)
PROC: 0DJ08ZZ Inspection of Upper Intestinal Tract, Via Natural or Artificial Opening Endoscopic (ICD-10-PCS; 2017-12-03)
PROC: 02HV33Z Insertion of Infusion Device into Superior Vena Cava, Percutaneous Approach (ICD-10-PCS; 2017-12-03)
PROC: B5181ZA Fluoroscopy of Superior Vena Cava using Low Osmolar Contrast, Guidance (ICD-10-PCS; 2017-12-03)
PROC: B548ZZA Ultrasonography of Superior Vena Cava, Guidance (ICD-10-PCS; 2017-12-03)
PROC: 30233N1 Transfusion of Nonautologous Red Blood Cells into Peripheral Vein, Percutaneous Approach (ICD-10-PCS; 2017-12-03)
PROC: 5A1D70Z Performance of Urinary Filtration, Intermittent, Less than 6 Hours Per Day (ICD-10-PCS; 2017-12-03)
PROC: 5A1D70Z Performance of Urinary Filtration, Intermittent, Less than 6 Hours Per Day (ICD-10-PCS; 2017-12-08)
DX: A41.9 Sepsis, unspecified organism (principal); J96.01 Acute respiratory failure with hypoxia; J69.0 Pneumonitis due to inhalation of food and vomit; I63.9 Cerebral infarction, unspecified; G93.41 Metabolic encephalopathy; I47.2 Ventricular tachycardia; N17.9 Acute kidney failure, unspecified; K92.2 Gastrointestinal hemorrhage, unspecified; N18.6 End stage renal disease; E87.0 Hyperosmolality and hypernatremia; E87.2 Acidosis; B37.81 Candidal esophagitis; J44.1 Chronic obstructive pulmonary disease with (acute) exacerbation; M62.82 Rhabdomyolysis; N39.0 Urinary tract infection, site not specified; I12.0 Hypertensive chronic kidney disease with stage 5 chronic kidney disease or end stage renal disease; I47.1 Supraventricular tachycardia; Z66 Do not resuscitate; I95.3 Hypotension of hemodialysis; R13.10 Dysphagia, unspecified; Z93.6 Other artificial openings of urinary tract status; B96.1 Klebsiella pneumoniae [K. pneumoniae] as the cause of diseases classified elsewhere; D64.9 Anemia, unspecified; Z51.5 Encounter for palliative care; T14.8XXA Other injury of unspecified body region, initial encounter; X58.XXXA Exposure to other specified factors, initial encounter; E83.42 Hypomagnesemia; D69.6 Thrombocytopenia, unspecified; F02.80 Dementia in other diseases classified elsewhere, unspecified severity, without behavioral disturbance, psychotic disturbance, mood disturbance, and anxiety; G30.9 Alzheimer's disease, unspecified; E87.6 Hypokalemia; E88.09 Other disorders of plasma-protein metabolism, not elsewhere classified; N28.1 Cyst of kidney, acquired; Z85.51 Personal history of malignant neoplasm of bladder; Y93.89 Activity, other specified; Y92.89 Other specified places as the place of occurrence of the external cause; Y99.8 Other external cause status; Z74.01 Bed confinement status; Z86.73 Personal history of transient ischemic attack (TIA), and cerebral infarction without residual deficits
CPT/HCPCS: 36245; 36561; 70450; 70544; 70551; 76770; 76937; 82271; 82306; 82570; 82607; 82746; 82805; 82962; 83036; 83540; 83550; 83605; 83735; 83970; 84100; 84105; 84145; 84300; 84443; 84540; 86803; 86850; 86900; 86901; 86920; 87040; 87086; 87340; 90935; 92526; 92610; 93005; 93306; 93880; 94660; 96365; 96366; 96367; 96375; 97112; 97167; 97535; 99291; C9113; J0360; J0610; J0696; J0744; J0885; J1644; J1940; J2250; J2405; J2543; J2920; J2930; J3010; J3370; J3475; J3480; J3490; J7030; J7040; J7042; J7050; J7060; P9016; P9046